=== PATIENT | female | born 1950 | race Caucasian/White ===

== ENCOUNTER 2018-10-14 10:48 | Outpatient (CLI) | payer OTHER | END 2018-10-14 10:55 | disposition home or self-care (01) | LOC: LAB 10:48 | DX: E11.65 Type 2 diabetes mellitus with hyperglycemia (principal); M54.2 Cervicalgia ==

== ENCOUNTER 2018-10-14 11:43 | Outpatient (CLI) | payer OTHER | END 2018-10-14 12:04 | disposition home or self-care (01) | LOC: RAD 11:43 | DX: M54.5 Low back pain (principal); R07.81 Pleurodynia | CPT/HCPCS: 71110; 72050; 72156; A9579; 72142 ==